=== PATIENT | male | born 1985 | race African-American/Black ===

== ENCOUNTER 2023-05-07 19:52 | Inpatient (IN) | payer BC ==
[~2023-05-07] VITALS: Ht 190.5 cm; Wt 111.6 kg
[2023-05-07 20:27] LABS: BASO % 0.5 % (0.0-2.0); EOS % 0.1 % (0.0-4.0); GRAN # 5.9 K/mm3 (1.4-6.5); GRAN % 69.1 % (42.2-75.2); HEMATOCRIT 41.7 % (42.0-52.0); HEMOGLOBIN 13.4 g/dl (13.5-18.0); LYMPH # 1.3 K/mm3 (1.2-3.4); MEAN CELL VOLUME 80 fl (80.0-100.0); MEAN CORPUSCULAR HEMOGLOBIN 26 pg (27-31); MEAN CORPUSCULAR HGB CONC 32 g/dl (33.0-37.0); MEAN PLATELET VOLUME 10.7 fl (7.4-10.4); MONO # 1.3 K/mm3 (0.1-0.6); MONO % 14.9 % (1.7-9.3); PLATELET COUNT 309 K/mm3 (130-400); RED BLOOD COUNT 5.23 M/mm3 (4.20-5.60)
[2023-05-07 20:39] LABS: ALBUMIN 3.2 gm/dL (3.5-5.0); BILIRUBIN,TOTAL 1.2 mg/dL (0.2-1.2); CALCIUM 9.3 mg/dL (8.4-10.2); CREATININE, serum 1.34 mg/dL (0.72-1.25); POTASSIUM 3.8 mmol/L (3.5-4.5); TOTAL PROTEIN 8.5 gm/dL (6.2-8.1)
[2023-05-07] MEDS ORDERED: OZEMPIC1 MG/0.71 SQ (22:11)
--- NOTE | 2023-05-07 22:15 | NUR ---
Report received from LOKI Mcrae in ED.
--- NOTE | 2023-05-07 22:45 | NUR ---
Patient arrived to room 351 via wheelchair. Up to bathroom at this time.
[2023-05-07] MEDS ORDERED: RYBELSUS7 MG PO (22:55)
[2023-05-07] MEDS ORDERED: PRIL40 PO (22:56)
[2023-05-07 22:58] VITALS: BP 123/81; PULSE 97; TEMP 98.2
[2023-05-07 23:16] LABS: PH 5.5 (5.0-8.5); URINE APPEARANCE Clear (CLEAR/HAZY); URINE BLOOD TRACE-INTACT (NEGATIVE); URINE COLOR Yellow (YELLOW); URINE GLUCOSE Negative (NEGATIVE); URINE KETONE 1+ (NEGATIVE); URINE NITRATE Negative (NEGATIVE); URINE PROTEIN(semi-quant) 1+ (NEGATIVE)
[2023-05-07 23:24] LABS: COLLECTION METHOD CLEAN CATCH
[2023-05-07 23:55] LABS: SQUAMOUS EPITHELIAL None Seen /hpf (0-10); URINE RBC 0-2 /hpf (0-2)
[2023-05-07 23:56] LABS: MUCOUS Present (NOT PRESENT); URINE BACTERIA Occasional /hpf (NONE SEEN)
[2023-05-08] VITALS (452 sets, daily range): BP systolic 113–141; BP diastolic 71–95; PULSE 91–113; TEMP 97.8–98.9; O2SAT 85–100
--- NOTE | 2023-05-08 02:00 | NUR ---
Patient c/o nausea-zofran given per dr order. Will monitor.
--- NOTE | 2023-05-08 02:10 | NUR ---
Cade for radiology to floor to take patient for CT. Patient states he wants to wait until morning when the US is done.
--- NOTE | 2023-05-08 03:05 | NUR ---
MATT Smith notified of critical troponin of 0.033. No new orders received.
--- NOTE | 2023-05-08 07:00 | NUR ---
PT RESTING IN BED. PT IS AXOX3. PT IS ON RA. PT IS SR ON TELE. PT HAS CALL LIGHT AND INSTRUCTED TO CALL WITH ALL NEEDS. PT IS ON CLEAR LIQUIDS BUT INSTRUCTED TO HOLD OFF DUE TO ULTRASOUND AND CT ORDERED FOR TODAY. 0805 CARDIOLOGY PAGED FOR CONSULT. 0820 CARDIOLOGY PAGED FOR CONSULT. 0845 CARDIOLOGY PAGED FOR CONSULT. [address] THEY STATED THEY PLAN TO TAKE PT AT AROUND 0930. PT UPDATED. 0853 BÁRBARA RN WITH CARDIOLOGY CALLED THIS RN. NOTIFIED HER OF CONSULT.
[2023-05-08 08:44] LABS: HEMATOCRIT 37.7 % (42.0-52.0); HEMOGLOBIN 11.9 g/dl (13.5-18.0); MEAN CELL VOLUME 81 fl (80.0-100.0); MEAN CORPUSCULAR HEMOGLOBIN 26 pg (27-31); MEAN CORPUSCULAR HGB CONC 32 g/dl (33.0-37.0); MEAN PLATELET VOLUME 10.6 fl (7.4-10.4); PLATELET COUNT 268 K/mm3 (130-400); RED BLOOD COUNT 4.67 M/mm3 (4.20-5.60); REDCELL DISTRIBUTION WIDTH-CV 13.2 % (11.5-14.5)
[2023-05-08 08:54] LABS: ALBUMIN 2.8 gm/dL (3.5-5.0); BILIRUBIN,TOTAL 0.9 mg/dL (0.2-1.2); CALCIUM 8.8 mg/dL (8.4-10.2); CREATININE, serum 1.04 mg/dL (0.72-1.25); POTASSIUM 3.9 mmol/L (3.5-4.5); TOTAL PROTEIN 7.5 gm/dL (6.2-8.1)
[2023-05-08 09:00] LABS: TROPONIN-I 0.019 ng/mL (0.00-0.033)
--- NOTE | 2023-05-08 10:30 | NUR ---
CALLED REGARDING CONSULT. STATES HE WILL SEE PT LATER TODAY.
--- NOTE | 2023-05-08 11:50 | NUR ---
WAS NOTIFIED BY CT OF THE POSSIBILITY OF A PERICARDIAL EFFUSION. ECHO ON THEIR WAY UP. REVIEWED CT AGREEING WITH A PERICARDACL EFFUSION. BÁRBARA MANJARREZ NOTIFIED OF ABOVE AND WILL HAVE REVIEW ECHO RASHID. NOTIFIED OF ABOVE.
[2023-05-08] MEDS ORDERED: ZOFRAN8 MG PO (13:40)
[2023-05-08] MEDS ORDERED: PROAIR HFA0.09 MG/AC IH (13:42)
--- NOTE | 2023-05-08 14:05 | NUR ---
Business Change Manager met with patient to discuss discharge planning. Patient lives alone in [place] and sees Dr. Batista for primary care. Patient obtains medications from [facility] with no difficulties. Patient does not use any DME. Patient advised he is employed at [employer]. Patient plans to return home at time of discharge. When asked about Advance Directives, patient believes he may have completed a DPOA-HC at one time but is not sure. Patient stated his legal next of kin is his father, Yanci (ph#[phone]). Discharge Plan: Home
--- NOTE | 2023-05-08 14:33 | NUR ---
1400-PTS MOM CALLED REQUESTING AN UPDATE. THIS RN CLARIFIED WITH PT THAT IT IS OKAY TO GIVE INFO TO MOM (CONCHA). MOM THOUROUGHLY UPDATED ON PTS CONDITION, LABS, IMAGININ, AND PLAN. 1430-PT TO GO TO [facility] FOR PERICARDIOCENTESIS. PT ON PHONE WITH MOM. THIS RN ANSWERED QUESTIONS FOR HER. SHE REQUESTED THAT CALL HER. I INFORMED HER I WOULD ASK, BUT COULD NOT GUARENTEE HE WOULD CALL. BÁRBARA RN WITH CARDIOLOGY NOTIFIED AND MOMS NUMBER GIVEN.
--- NOTE | 2023-05-08 14:47 | NUR ---
Patient has given permission for keys to be placed in closet located patient room to allow his uncle (Edgar Vernon) to pick pulling machine operator to allow access into his car and apartment. Description of keys: [employer] car fob, another unmarked FOB, 3 gold keys.
--- NOTE | 2023-05-08 16:30 | NUR ---
REPORT RECEIVED FROM DARYL, MEDICAL FLOOR RN & JIMMY ECONOMICS TEACHER RN. PATIENT ARRIVED TO UNIT @ 1627 ACCOMPANIED BY ECONOMICS TEACHER STAFF. PATIENT IS ALERT AND ORIENTED. HEAD TO TOE ASSESSMENT COMPLETED. SUTURES IN PLACE TO ABDOMEN WHERE DRAIN IS PLACED. DRAIN IS CLAMPED OFF TO PATIENT WITH BAG ATTACHED. DRAIN IS TO REMAIN CLAMPED OFF UNTIL AM PER DR. DELGADILLO. PATIENT REPORTS NO NAUSEA AND NO PAIN AT THIS TIME. MEDICATIONS ADMINISTERED PER EMAR. CALL LIGHT WITHIN REACH.
[2023-05-09] VITALS (820 sets, daily range): BP systolic 111–124; BP diastolic 71–86; PULSE 76–108; TEMP 97.6–98.9; O2SAT 89–100
--- NOTE | 2023-05-09 07:00 | NUR ---
Report received from LOKI Otoole; patient currently resting in bed with fluids running through his peripheral line. Patient has a drain in place after having a pericardiocentesis which is currently clamped. Patient is on room air and has no other lines or tubes in place at this time. Patient's vital signs are within normal limits this morning, although heart rate can become tachycardic at times.
--- NOTE | 2023-05-09 09:30 | NUR ---
Dr. Cervantes removed patient's pericardial drain this morning at approx 0911. Patient tolerated procedure well and vital signs remained normal throughout and after procedure. Patient has no complaints of pain at this time.
--- NOTE | 2023-05-09 10:09 | NUR ---
Initial visit; Patient thanked Scrub Wheel Operator for looking in on him and offering Spiritual Care. Patient declined visit at this time. Scrub Wheel Operator wished him well and God's blessings.
--- NOTE | 2023-05-09 11:24 | NUR ---
[facility] Psychiatrist collaborated with Treatment Team during rounding to assess PAtient for discharge rediness. Patient is assessed to need continued stay and is being upgraded to INPT. Patient has orders to transition to Medical floor.
--- NOTE | 2023-05-09 14:50 | NUR ---
REPORT RECEIVED FROM LOKI BHATT. PT ON THE FLOOR APPROX 1450, TRANSFERRED FROM WHEELCHAIR TO BED INDEPENDENTLY. PT DENIES PAIN AT THIS TIME. LUNGS DIMINISHED IN ALL LOBES. PER REPORT DRAIN WAS REMOVED THIS AM, MID STERNAL GAUZE COVERED WITH TEGADERM IS CLEAN DRY AND INTACT. PT DENIES NEEDS AT THIS TIME AND IS ORIENTED TO ROOM. BED IN LOWEST POSITION, CALL LIGHT IN REACH
--- NOTE | 2023-05-09 18:34 | NUR ---
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 THIS NURSE UPDATED PT ON MEDS AND ALL ANSWERED QUESTIONS
--- NOTE | 2023-05-09 19:07 | NUR ---
During bedside shift report, patient reported he felt as if his asthma was kicking in. Home inhaler was not restarted. Call placed to FADUMO Granados, and new order to resume medication. Order placed, changed to nebulizer treatment. Called RT and updated, and requested treatment for patient.
--- NOTE | 2023-05-09 20:25 | NUR ---
Patient assessed around 1999. Denies having pain and discomfort. LS CTA in upper lobes, diminished in lower. HR tachy, 100s. Dressing to left chest CDI. Voices no questions, needs, or concerns at this time. In bed with call light within reach.
[2023-05-10] VITALS (12 sets, daily range): BP systolic 103–111; BP diastolic 62–78; PULSE 80–103; TEMP 97.1–98.9
--- NOTE | 2023-05-10 06:37 | NUR ---
Patient aware of plan for echo today. Voices no questions, needs, or concerns at this time. In bed with call light within reach. Has denied pain and discomfort this shift. Continues to have dry, non-productive cough.
--- NOTE | 2023-05-10 07:51 | NUR ---
PT SITTING UP IN BED, EATING BREAKFAST. ALERT AND ORIENTEDX4. NO COMPLAINTS OF PAIN EXCEPT FOR WHEN HE TAKES A DEEP BREATH IT HURTS HIS CHEST. ASSESSED AND GAVE MORNING MEDS. CALL LIGHT WITHIN REACH.
[2023-05-10 11:56] LABS: BASO % 0.1 % (0.0-2.0); EOS # 0.1 K/mm3 (0.0-0.7); EOS % 0.7 % (0.0-4.0); GRAN # 4.9 K/mm3 (1.4-6.5); GRAN % 64.8 % (42.2-75.2); HEMATOCRIT 40.6 % (42.0-52.0); HEMOGLOBIN 13.1 g/dl (13.5-18.0); LYMPH # 1.5 K/mm3 (1.2-3.4); LYMPH % 19.6 % (20.0-51.0); MEAN CELL VOLUME 80 fl (80.0-100.0); MEAN CORPUSCULAR HEMOGLOBIN 26 pg (27-31); MEAN CORPUSCULAR HGB CONC 32 g/dl (33.0-37.0); MEAN PLATELET VOLUME 10.6 fl (7.4-10.4); MONO # 1.1 K/mm3 (0.1-0.6); MONO % 14.3 % (1.7-9.3); PLATELET COUNT 356 K/mm3 (130-400); REDCELL DISTRIBUTION WIDTH-CV 12.7 % (11.5-14.5)
[2023-05-10 12:07] LABS: CALCIUM 8.8 mg/dL (8.4-10.2); CREATININE, serum 0.84 mg/dL (0.72-1.25); POTASSIUM 3.8 mmol/L (3.5-4.5)
[2023-05-11] VITALS (7 sets, daily range): BP systolic 109–117; BP diastolic 69–75; PULSE 87–94; TEMP 97.6–98.4
--- NOTE | 2023-05-11 00:05 | NUR ---
Patient assessed around 2029. Denies having pain and discomfort. Peripheral INT to left AC. Denies SOB and dyspnea. LS CTA in upper lobes, diminished in lower. Dry cough. HRR. Telemetry in place, normal sinus. Dressing to left chest from pericardiocentesis drain is CDI. BSAx4. Voices no questions, needs, or concerns at this time. Aware of plan for echo in the morning. In bed with call light within reach.
--- NOTE | 2023-05-11 06:08 | NUR ---
Patient denies pain and discomfort. Has voiced no questions, needs, or concerns this shift. Aware of plan for echo today. In bed with call light within reach.
[2023-05-11 06:12] LABS: BASO % 0.6 % (0.0-2.0); EOS # 0.1 K/mm3 (0.0-0.7); EOS % 1.2 % (0.0-4.0); GRAN # 4.3 K/mm3 (1.4-6.5); GRAN % 64.9 % (42.2-75.2); HEMATOCRIT 40.5 % (42.0-52.0); LYMPH # 1.3 K/mm3 (1.2-3.4); MEAN CELL VOLUME 80 fl (80.0-100.0); MEAN CORPUSCULAR HEMOGLOBIN 26 pg (27-31); MEAN CORPUSCULAR HGB CONC 32 g/dl (33.0-37.0); MEAN PLATELET VOLUME 11.3 fl (7.4-10.4); MONO # 0.9 K/mm3 (0.1-0.6); PLATELET COUNT 262 K/mm3 (130-400); RED BLOOD COUNT 5.07 M/mm3 (4.20-5.60); REDCELL DISTRIBUTION WIDTH-CV 12.8 % (11.5-14.5)
[2023-05-11 06:25] LABS: CALCIUM 9.2 mg/dL (8.4-10.2); CREATININE, serum 0.79 mg/dL (0.72-1.25); POTASSIUM 4.2 mmol/L (3.5-4.5)
[2023-05-11 06:40] LABS: MAGNESIUM 1.9 mg/dL (1.6-2.6)
--- NOTE | 2023-05-11 07:40 | NUR ---
PATIENT RESTING IN BED WITH ALL LIGHTS OFF AND TV OFF WITH FRIEND AT BEDSIDE. NO ACUTE DISTRESS NOTED. ASSESSMENT COMPETED. PATIENT TOLERATED WELL. TELEMETRY INTACT. INT TO LEFT AC INTACT WITH NO COMPLICATIONS NOTED. ALL NEEDS MET. BED IN LOW POSITION WTIH WHEELS LOCKED WITH RAILS UP X3 AND CALL LIGHT WITHIN REACH.
[2023-05-11] MEDS ORDERED: COREG 3.123.125 MG/T PO (09:47)
[2023-05-11] MEDS ORDERED: ASPIRIN E.C. 8181 MG PO (09:48)
[2023-05-11] MEDS ORDERED: INDOCIN 25MG CA25 MG PO (09:48)
[2023-05-11] MEDS ORDERED: COZAAR 25MG25 MG/TAB PO (09:48)
[2023-05-11] MEDS ORDERED: COLCRYS0.6 MG PO (09:49)
--- NOTE | 2023-05-11 10:40 | NUR ---
PATIENT RESTING IN BED AT THIS TIME WITH NO ACUTE DISTRESS NOTED. IV DISCONTINUED WITH CATHETER INTACT. DRESSING APPLIED. TELEMETRY REMOVED. PATIENT REFUSED TO SIGN DISCHARGE INSTRUCTIONS AFTER EXPLAINATION DUE TO MOTHER EXPRESSING CONCERN ABOUT SED RAT, ARTHUR, AND LIVER FUNCTION TEST RESULTS/ORDERS. MD NOTIFED ABOUT REQUEST TO ANSWER QUESTIONS. PATIENT DENIES ANY NEEDS AT THIS TIME. BED IN LOW POSITON WITH WHEELS LOCKED WITH RAILS UP X3 AND CALL LIGHT WITHIN REACH.
--- NOTE | 2023-05-11 16:16 | NUR ---
PATIENT DISCHARGED VIA WHEELCHAIR TO PERSONAL CAR WITH FATHER. PATIENT STABLE.
== END 2023-05-11 16:19 | disposition home or self-care (01) | DRG 280 ==
LOC: COL.ER 19:52 → MEDICAL 21:53 → ICU 21:53 → MEDICAL 05-08 13:20 → ICU 05-08 15:20 → MEDICAL 05-09 14:55
PROVIDERS: Emergency Medicine; Physician Assistant; ADMIT Internal Medicine
PROC: 0W9D3ZZ Drainage of Pericardial Cavity, Percutaneous Approach (ICD-10-PCS; principal; 2023-05-07)
DX: I31.9 Disease of pericardium, unspecified (principal); K85.90 Acute pancreatitis without necrosis or infection, unspecified; I21.3 ST elevation (STEMI) myocardial infarction of unspecified site; I50.20 Unspecified systolic (congestive) heart failure; K52.9 Noninfective gastroenteritis and colitis, unspecified; K83.9 Disease of biliary tract, unspecified; E86.0 Dehydration; E11.9 Type 2 diabetes mellitus without complications; Z79.4 Long term (current) use of insulin
CPT/HCPCS: C9113; G0378; J1644; J1650; J2250; J2405; J2765; J3010; J7030; J7120; Q9967

== ENCOUNTER 2023-08-30 11:38 | Emergency (ER) | payer BC ==
[~2023-08-30] VITALS: Ht 190.5 cm; Wt 113.6 kg
[~2023-08-30 11:38] MED LIST: ASPIRIN E.C. 8181 MG PO; COLCRYS0.6 MG PO; COREG 3.123.125 MG/T PO; COZAAR 25MG25 MG/TAB PO; INDOCIN 25MG CA25 MG PO; OZEMPIC1 MG/0.71 SQ; PRIL40 PO; PROAIR HFA0.09 MG/AC IH; RYBELSUS7 MG PO; ZOFRAN8 MG PO
[2023-08-30 11:47] VITALS: TEMP 97.8
[2023-08-30 12:26] LABS: BASO # 0.1 K/mm3 (0.0-0.2); BASO % 0.8 % (0.0-2.0); EOS # 0.1 K/mm3 (0.0-0.7); EOS % 2.2 % (0.0-4.0); GRAN # 3.9 K/mm3 (1.4-6.5); GRAN % 61.9 % (42.2-75.2); HEMATOCRIT 45.3 % (42.0-52.0); HEMOGLOBIN 14.7 g/dl (13.5-18.0); LYMPH # 1.7 K/mm3 (1.2-3.4); LYMPH % 27.1 % (20.0-51.0); MEAN CELL VOLUME 81 fl (80.0-100.0); MEAN CORPUSCULAR HEMOGLOBIN 26 pg (27-31); MEAN CORPUSCULAR HGB CONC 33 g/dl (33.0-37.0); MEAN PLATELET VOLUME 11.2 fl (7.4-10.4); MONO # 0.5 K/mm3 (0.1-0.6); MONO % 7.7 % (1.7-9.3); PLATELET COUNT 219 K/mm3 (130-400); RED BLOOD COUNT 5.57 M/mm3 (4.20-5.60); REDCELL DISTRIBUTION WIDTH-CV 14.5 % (11.5-14.5)
[2023-08-30 13:56] LABS: ALBUMIN 3.9 gm/dL (3.5-5.0); BILIRUBIN,TOTAL 0.6 mg/dL (0.2-1.2); CALCIUM 9.9 mg/dL (8.4-10.2); CREATININE, serum 1.12 mg/dL (0.72-1.25); POTASSIUM 4.2 mmol/L (3.5-4.5); TOTAL PROTEIN 7.7 gm/dL (6.2-8.1)
[2023-08-30 14:01] LABS: TROPONIN-I 0.02 ng/mL (0.00-0.033)
[2023-08-30] MEDS ORDERED: REGLAN 10MG10 MG/TAB PO (14:04)
[2023-08-30 14:21] VITALS: BP 122/94; PULSE 81
== END 2023-08-30 14:36 | disposition home or self-care (01) ==
LOC: COL.ER 11:38
PROVIDERS: Emergency Medicine
DX: R11.0 Nausea (principal); Z86.79 Personal history of other diseases of the circulatory system